=== PATIENT | female | born 1960 | race Caucasian/White ===

== ENCOUNTER 2021-05-11 02:51 | Emergency (ER) | payer BC ==
[2021-05-11] MEDS ORDERED: Acetaminophen/oxyCODONE 325-5 MG Tab PO ONE ×3 (02:52→03:25)
[2021-05-11] MEDS ORDERED: Cyclobenzaprine 10 MG Tab PO ONE (03:23)
--- NOTE | 2021-05-11 04:01 | EDM.PDOC ---
ED HPI GENERAL MEDICAL PROBLEM - General Chief Complaint: Back Pain or Injury Stated Complaint: SEVERVE PAIN IN SPINE Time Seen by Provider: 05/11/21 03:10 Source of Information: Reports: Patient History Limitations: Reports: No Limitations - History of Present Illness INITIAL COMMENTS - FREE TEXT/NARRATIVE: ED via wheelchair with c/o low back pain and spasm, pain started 3 weeks ago after cleaning and boxing items getting home ready to seell. Denies specific injury. MRI done in last week noted fx L4 and multi level disc disease. Is seeing Shirley Harvey ran out of medication , took last shortly coming to ED. States attempted to get ahold of Shirley yesterday to get refills on medications and office never called back. Prior refill on 05/04 for 5 days. No change in radiation down right leg, some increase inspasm on left side up to below shoulder blade Lower Back Pain Score (Numeric/FACES): 10 - Related Data Allergies Allergy/AdvReac Type Severity Reaction Status Date / Time No Known Allergies Allergy Verified 05/11/21 02:58 Home Meds: Home Meds HCTZ/Triamterene [Maxzide 25-37.5 MG] 1 tab PO DAILY 05/11/21 [History] Potassium Chloride 20 meq PO DAILY 05/11/21 [History] Quinapril [Accupril] 20 mg PO DAILY 05/11/21 [History] atenoloL [Atenolol] 50 mg PO DAILY 05/11/21 [History] buPROPion HCL [Bupropion Xl] 150 mg PO DAILY 05/11/21 [History] Past Medical History Cardiovascular History: Reports: Hypertension Musculoskeletal History: Reports: Other (See Below) Other Musculoskeletal History: l4 fx, 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 ED EXAM,LOWER BACK PAIN/INJURY - Physical Exam Exam: See Below Exam Limited By: No Limitations General Appearance: Alert, Moderate Distress Eye Exam: Bilateral Eye: EOMI Ears: Normal External Exam Nose: Normal Inspection Throat/Mouth: Normal Inspection Head: Atraumatic, Normocephalic Neck: Normal Inspection, Full Range of Motion Respiratory/Chest: No Respiratory Distress, Lungs Clear, Normal Breath Sounds Cardiovascular: Normal Peripheral Pulses, Regular Rate, Rhythm GI/Abdominal: Normal Bowel Sounds, Soft Back Exam: Decreased Range of Motion, Muscle Spasm, Paraspinal Tenderness (greater left), Vertebral Tenderness (lumbar). No: CVA Tenderness (R) Extremities: Normal Inspection Neurological: Alert, Normal Dorsiflexion, CN II-XII Intact, Normal Reflexes, Oriented x 3, Straight Leg Raise (R). No: Saddle Anesthesia Skin Exam: Warm, Dry, Intact, Normal Color Course - Vital Signs Last Recorded V/S: Last Vital Signs Temp 97.1 F 05/11/21 03:06 Pulse 86 05/11/21 03:06 Resp 20 05/11/21 03:06 BP 132/70 05/11/21 03:06 Pulse Ox 98 05/11/21 03:06 - Orders/Labs/Meds Meds: Medications Discontinued Medications Generic Name Dose Route Start Last Admin Trade Name Roniq PRN Reason Stop Dose Admin Cyclobenzaprine HCl 10 mg 05/11/21 03:23 05/11/21 03:32 Cyclobenzaprine 10 Mg Tab PO 05/11/21 03:24 10 mg ONETIME ONE Administration Cyclobenzaprine HCl Confirm 05/11/21 04:05 05/11/21 04:14 Cyclobenzaprine 10 Mg Tab Administered 05/11/21 04:06 Not Given Dose 10 mg .ROUTE .STK-MED ONE Oxycodone/Acetaminophen 1 tab 05/11/21 03:25 05/11/21 03:32 Acetaminophen/Oxycodone 325-5 Mg Tab PO 05/11/21 03:26 1 tab ONETIME ONE Administration Oxycodone/Acetaminophen Confirm 05/11/21 04:04 05/11/21 04:14 Acetaminophen/Oxycodone 325-5 Mg Tab Administered 05/11/21 04:05 Not Given Dose 2 tab .ROUTE .STK-MED ONE Departure - Departure Time of Disposition: 03:56 Disposition: Home, Self-Care 01 Condition: Fair Clinical Impression: Low back pain Qualifiers: Chronicity: acute Back pain laterality: bilateral Sciatica presence: with sciatica Sciatica laterality: sciatica of right side Qualified Code(s): M54.41 - Lumbago with sciatica, right side - Discharge Information *PRESCRIPTION DRUG MONITORING PROGRAM REVIEWED*: Yes *COPY OF PRESCRIPTION DRUG MONITORING REPORT IN PATIENT VICENTE: No Instructions: Acute Back Pain, Adult Referrals: PCP,None [Primary Care Provider] - Forms: ED Department Discharge Additional Instructions: alternate tylenol and ibuprofen every 4 hours for mild to moderate pain, Not to exceed 300mg of either tylenol or ibuprofen in 24 hours percocet 5/325 one every 4 hours as needed for severe pain #8 Flexeril 10mg one every 8 hours as needed for muscle spasm #5 Follow up with primary care Follow with specialty appointment with Dr Thorne as scheduled ice or heat to low back per personal preference, bengay or similar product activity as tolerated Sepsis Event Note (ED) - Evaluation Sepsis Screening Result: No Definite Risk - Focused Exam Vital Signs: Vital Signs Temp Pulse Resp BP Pulse Ox 05/11/21 03:06 97.1 F 86 20 132/70 98
[2021-05-11] MEDS ORDERED: Acetaminophen/oxyCODONE 325-5 MG Tab ONE (04:04)
[2021-05-11] MEDS ORDERED: Cyclobenzaprine 10 MG Tab ONE (04:05)
== END 2021-05-11 04:14 | disposition home or self-care (01) ==
LOC: DL.ED 02:51
DX: M54.41 Lumbago with sciatica, right side (principal); I10 Essential (primary) hypertension; Z72.0 Tobacco use
CPT/HCPCS: 99283; A9270-GY